=== PATIENT | female | born 1970 | race Caucasian/White ===

== ENCOUNTER → 2016-10-13 | Outpatient (CLI) | payer BC ==
[2015-09-16 22:31] VITALS: BP 110/64
[~2016-10-13] MED LIST: BUSPIRONE HYDRO10 MG PO; METHYLPHENIDATE10 M4 PO; XANAX0.25 M1 PO
== END ==
LOC: RAD 07:00
DX: M54.9 Dorsalgia, unspecified (principal); M43.17 Spondylolisthesis, lumbosacral region; M48.06 Spinal stenosis, lumbar region; M51.26 Other intervertebral disc displacement, lumbar region

== ENCOUNTER → 2018-12-27 | Outpatient (CLI) | payer BC ==
[2015-09-16 22:31] VITALS: BP 110/64
== END ==
LOC: MAMMO 10:35
DX: Z12.31 Encounter for screening mammogram for malignant neoplasm of breast (principal)

== ENCOUNTER → 2019-12-04 | Outpatient (CLI) | payer BC ==
[2015-09-16 22:31] VITALS: BP 110/64
== END ==
LOC: RAD 10:12
DX: R06.02 Shortness of breath (principal); M54.9 Dorsalgia, unspecified
CPT/HCPCS: Q9967

== ENCOUNTER → 2020-01-11 | Outpatient (CLI) | payer BC ==
[2015-09-16 22:31] VITALS: BP 110/64
== END ==
LOC: MAMMO 12-14 07:04
DX: Z12.31 Encounter for screening mammogram for malignant neoplasm of breast (principal); Z98.82 Breast implant status